=== PATIENT | female | born 1990 | race Caucasian/White ===

== ENCOUNTER 2024-12-09 09:58 | Emergency (ER) | payer OTHER, SELFPAY ==
[2024-12-09 10:02] VITALS: BP 157/99
[2024-12-09 11:53] VITALS: BMI 33.5
[2024-12-09] MEDS: TORADOL 15 MG IV (11:59)
[2024-12-09] MEDS: ZOFRAN 4 MG IV (11:59)
[2024-12-09] MEDS: NSS 500 IV (12:00)
[2024-12-09 12:20] LABS: Hematocrit 40.2 % (37.0-47.0); Hemoglobin 13.6 g/dL (12.0-16.0); Mean Corp Hgb Conc. 33.8 g/dL (33.0-37.0); Mean Corpuscular Volume 84.1 fL (81.0-99.0); Nucleated Red Blood Cells % 0 %; Platelet Count 291 10^3/uL (130-400); Red Cell Dist. Width 12.4 % (11.5-14.5)
[2024-12-09 12:30] LABS: Urine Character Clear (Clear)
--- NOTE | 2024-12-09 12:52 | ED.GENMED ---
History of Present Illness
<Vitaliy Koehler MD - Last Filed: 12/10/24 08:07>
General
Chief Complaint: Back Pain
Source: patient
Exam Limitations: none
Time Seen by Provider: 12/09/24 10:52
Nursing documentation reviewed up to this point in time: agreed with
History of Present Illness
History of Present Illness:
Patient with history of 2 episodes of kidney stone, during previous , presents to ED secondary to intermittent left back/flank/groin pain with increased urinary frequency over the past 2 days, along with sensation of 'not feeling well'.
Patient has had nausea sensation with pain, without vomiting. Denies fever. Denies trauma. Denies inability to urinate. Denies recent illness. Denies recent change in medications or diet. Denies change in activities.
Past History
<Vitaliy Koehler MD - Last Filed: 12/10/24 08:07>
Past History
ED Past Medical History: None
Social History
Tobacco: Non-smoker
Personal: Single
Living: with roommate
Employment: Other (student)
Review of Systems
<Vitaliy Koehler MD - Last Filed: 12/10/24 08:07>
Review of Systems
Allergies reviewed?: Yes
All Other Systems: ROS reviewed and negative except as documented in HPI and ROS
Constitutional: Reports no symptoms; Denies fever or chills
Cardiac: Reports no symptoms
ABD/GI: Reports nausea and vomiting; Denies abdominal pain
: Reports frequency and flank pain
Musculoskeletal: Reports back pain
Skin: Reports no symptoms
Neurological: Reports no symptoms
Phy Exam
<Vitaliy Koehler MD - Last Filed: 12/10/24 08:07>
Physical Exam
Physical Exam:
Physical Exam
General: mild painful distress, not acutely ill. afebrile
Head: nc/at. eomi
Neck: supple. normal range of motion.
Abdomen: normal bowel sounds. not tender.
Back: no cva tenderness to palpation
Neuro: alert and oriented x 3. no focal neurological deficits
Skin: no rash
Psychiatric: well kept. interactive and cooperative
Extremities: no edema. no calf tenderness.
Course
<Vitaliy Koehler MD - Last Filed: 12/10/24 08:07>
Orders/Labs/Results
Orders:
Orders
12/09/24 11:46
CT Abd/pel Without Iv Or Oral Urgent
Comment:
Reason For Exam: left back/flank pain w hx kidney stone
0.9% Sodium Chloride 500 ml [Nss] 500 ml IV BOLUS
Ketorolac [Toradol] 15 mg IV NOW STA
Ondansetron Injectable [Zofran] 4 mg IV NOW STA
12/09/24 11:54
Complete Blood Count/With Diff Urgent
Comprehensive Metabolic Panel Urgent
HCG, Serum Qualitative Screen Urgent
Comment: ADD
Magnesium Urgent
12/09/24 11:59
Urinalysis Reflex To Culture Urgent
Date Specimen was Collected: 12/09/24
Time Specimen was Collected: 11:55
12/09/24 12:33
Add On- LAB Urgent
Tests Added?: Serum hCG, qualitative
12/09/24 14:54
US Pelvis W Transvag Combined Urgent
Comment:
Reason For Exam: LLQ pain
Abnormal Lab Results
12/09/24
11:54
WBC 13.2 H 10^3/uL
(4.8-10.8)
Abs Immat Gran (auto) 0.1 H 10^3/uL
(0-0.05)
Absolute Neuts (auto) 10.5 H 10^3/uL
(1.4-6.5)
Absolute Monos (auto) 0.8 H 10^3/uL
(0.1-0.6)
Neutrophils % 79.8 H %
(42.2-75.2)
Lymphocytes % 13.3 L %
(20.5-51.1)
12/09/24 11:54
12/09/24 11:54
Vital Signs
Initial and Last Documented VS:
Initial Vital Signs
Temp Pulse Resp BP Pulse Ox
98.6 F 104 16 157/99 98
12/09/24 10:02 12/09/24 10:02 12/09/24 10:02 12/09/24 10:02 12/09/24 10:02
Last Documented Vital Signs
Temp Pulse Resp BP Pulse Ox
98.6 F 104 16 124/89 98
12/09/24 10:02 12/09/24 10:02 12/09/24 10:02 12/09/24 16:47 12/09/24 12:57
<Reji Crawford MD - Last Filed: 12/09/24 17:30>
Orders/Labs/Results
Orders:
Orders
12/09/24 11:46
CT Abd/pel Without Iv Or Oral Urgent
Comment:
Reason For Exam: left back/flank pain w hx kidney stone
0.9% Sodium Chloride 500 ml [Nss] 500 ml IV BOLUS
Ketorolac [Toradol] 15 mg IV NOW STA
Ondansetron Injectable [Zofran] 4 mg IV NOW STA
12/09/24 11:54
Complete Blood Count/With Diff Urgent
Comprehensive Metabolic Panel Urgent
HCG, Serum Qualitative Screen Urgent
Comment: ADD
Magnesium Urgent
12/09/24 11:59
Urinalysis Reflex To Culture Urgent
Date Specimen was Collected: 12/09/24
Time Specimen was Collected: 11:55
12/09/24 12:33
Add On- LAB Urgent
Tests Added?: Serum hCG, qualitative
12/09/24 14:54
US Pelvis W Transvag Combined Urgent
Comment:
Reason For Exam: LLQ pain
Abnormal Lab Results
12/09/24
11:54
WBC 13.2 H 10^3/uL
(4.8-10.8)
Abs Immat Gran (auto) 0.1 H 10^3/uL
(0-0.05)
Absolute Neuts (auto) 10.5 H 10^3/uL
(1.4-6.5)
Absolute Monos (auto) 0.8 H 10^3/uL
(0.1-0.6)
Neutrophils % 79.8 H %
(42.2-75.2)
Lymphocytes % 13.3 L %
(20.5-51.1)
12/09/24 11:54
12/09/24 11:54
Vital Signs
Initial and Last Documented VS:
Initial Vital Signs
Temp Pulse Resp BP Pulse Ox
98.6 F 104 16 157/99 98
12/09/24 10:02 12/09/24 10:02 12/09/24 10:02 12/09/24 10:02 12/09/24 10:02
Last Documented Vital Signs
Temp Pulse Resp BP Pulse Ox
98.6 F 104 16 124/89 98
12/09/24 10:02 12/09/24 10:02 12/09/24 10:02 12/09/24 16:47 12/09/24 12:57
<Vitaliy Koehler MD - Last Filed: 12/10/24 08:07>
MDM/Problems Addressed
MDM/Problems Addressed:
CT report reviewed and discussed with patient.
Pelvic ultrasound pending. If negative, patient will be discharged home with prescription for Augmentin, to be taken if her symptoms persist over the next 48 hours. Advised return to ED with worsening symptoms, i.e. fever/worsening pain/vomiting.
<Vitaliy Koehler MD - Last Filed: 12/10/24 08:07>
*Pulse Oximetry
SaO2: 98
Oxygen Mode of Delivery: Room air
Patient hypoxic: no
*Critical Care Note
Total Time (30-74mins, 75-104mins- exclusive of procedures): Not Applicable
<Reji Crawford MD - Last Filed: 12/09/24 17:30>
Update Note
Update Note:
UPDATE (Reji Crawford MD)
I have seen and evaluated the patient after signout and reviewed all labs and imaging.
Focused HPI: 34-year-old female with no reported chronic medical issues presented for left flank pain started yesterday associated with nausea.
Physical exam: Awake alert not in distress. Tachycardic otherwise normal vitals. Abdomen soft nontender.
Medical Decision Makin-year-old female presents for left flank pain. She had a mild leukocytosis but otherwise unremarkable labs. hCG negative. Urinalysis bland. CT showed diverticulosis but no signs of diverticulitis. Pelvic ultrasound
shows no torsion. Could be musculoskeletal pain or early diverticulitis given presence of diverticulosis and leukocytosis. Prescribed antibiotic, stable for discharge to follow-up with PCP.
ED Attending Note
<Vitaliy Koehler MD - Last Filed: 12/10/24 08:07>
-
Portions of this chart may have been created with voice recognition software.� Occasional wrong word or��sound alike� substitutions may have occurred due to the inherent limitations of voice recognition software.
Discharge Plan
Departure
Patient Disposition: Home (Routine Discharge)
Date of Disposition: 12/09/24
Time of Disposition: 17:23
Patient with high blood pressure during this ER visit?: Yes
Discharge Problem:
Abdominal pain
Instructions: Abdominal Pain
Prescriptions:
New
amoxicillin-pot clavulanate 875-125 mg tablet
1 tab PO Q12H Qty: 14 0RF
No Action
No Current Medications
ciprofloxacin HCl [Ciloxan] 5 ML drops
1 drp OPHTHALMIC .Q4H WHILE AWAKE Qty: 5 0RF
Referrals:
NONE,* [Family Provider, Internal Medicine]
Interventions
Interventions:
*Risk Screen - Suicide Last Done: 12/09/24 10:02
*General Assessment Last Done: 12/09/24 11:25
*Neglect/Abuse Screening Last Done: 12/09/24 10:02
*ED- Fall Risk Assessment Last Done: 12/09/24 11:25
*ED COVID-19 Vaccine History Last Done: 12/09/24 11:25
*Nursing Disposition Last Done: 12/09/24 17:50
ED-Musculoskeletal Assessment Last Done: 12/09/24 11:25
Discharge Date and Time
Discharge Date/Time: 12/09/24 17:51
Print Language: ALGERIAN
[2024-12-09 13:09] LABS: ALT (SGPT) 26 U/L (0-35); AST (SGOT) 25 U/L (14-36); Albumin 4.7 g/dl (3.5-5.0); Alkaline Phosphatase 70 U/L (38-126); Blood Urea Nitrogen 10 mg/dl (7-17); Calcium 10.0 mg/dl (8.4-10.2); Carbon Dioxide 23 mmol/L (22-30); Chloride 107 mmol/L (98-107); Estimated Creatinine Clearance > 125 ml/min; Glucose 88 mg/dl (70-99); Magnesium 1.8 mg/dl (1.6-2.3); Potassium 4.1 mmol/L (3.5-5.1); Sodium 139 mmol/L (135-145); Total Protein 7.7 g/dl (6.3-8.2); eGFR > 60.00
[2024-12-09 13:21] LABS: HCG, Serum Qualitative Screen Negative
[2024-12-09 16:47] VITALS: BP 124/89
== END 2024-12-09 17:51 | disposition home or self-care (01) ==
LOC: EMR 09:58
PROVIDERS: EMERGENCY PHYSICIAN Emergency Medicine
DX: R10.9 Unspecified abdominal pain (principal); R03.0 Elevated blood-pressure reading, without diagnosis of hypertension; D72.829 Elevated white blood cell count, unspecified; K57.30 Diverticulosis of large intestine without perforation or abscess without bleeding; Z87.442 Personal history of urinary calculi
CPT/HCPCS: 99284; 96374; 96375; 96361; 74176; 76830; 76856; 80053; 81003; 83735; 84703; 85025